=== PATIENT | male | born 1995 | race Caucasian/White ===

== ENCOUNTER 2017-07-22 15:56 | Emergency (ER) | payer SELFPAY ==
[~2017-07-22] VITALS: Ht 182.9 cm; Wt 77.1 kg
[~2017-07-22 15:56] MED LIST: AMOX500 PO; CEPH500 PO; CODACEE120 PO; CYCL10 PO; Cleocin HCl300 MG PO; HYDACE5 PO; Hydrocodone-Ap1 EA23 PO; IBUP600 PO; IBUP800 PO; Motrin600 MG PO; NAPR220; Naprosyn500 MG PO; Norco 5-325 Ta1 EACH PO; PENVK500 PO; PROM25 PO; Pepcid40 MG PO; RXHYD5325 PO; SULTRIDS; SULTRIDS PO; TRAM50 PO; Ultram50 MG PO; Veetids 500500 MG PO; Zofran Odt4 MG SL
[2017-07-22] MEDS ORDERED: Robaxin-750750 MG PO (17:50)
== END 2017-07-22 17:58 | disposition home or self-care (01) ==
LOC: ER 15:56
DX: S16.1XXA Strain of muscle, fascia and tendon at neck level, initial encounter (principal); S39.012A Strain of muscle, fascia and tendon of lower back, initial encounter; Z90.89 Acquired absence of other organs; V69.9XXA Occupant (driver) (passenger) of heavy transport vehicle injured in unspecified traffic accident, initial encounter
CPT/HCPCS: 72040; 72070; 72100; 99283

== ENCOUNTER 2018-02-23 10:19 | Emergency (ER) | payer OTHER ==
[~2018-02-23] VITALS: Ht 182.9 cm; Wt 77.1 kg
[~2018-02-23 10:19] MED LIST changes: +Robaxin-750750 MG PO
[2018-02-23] MEDS ORDERED: ARIPIPRAZOLE2 MG PO ×2 (10:42→11:07)
[2018-02-23] MEDS ORDERED: OXCA300 PO ×2 (10:42→11:07)
== END 2018-02-23 11:31 | disposition home or self-care (01) ==
LOC: ER 10:19
DX: F43.10 Post-traumatic stress disorder, unspecified (principal); F31.81 Bipolar II disorder; Z79.899 Other long term (current) drug therapy
CPT/HCPCS: 99281

== ENCOUNTER 2018-04-05 19:57 | Emergency (ER) | payer OTHER ==
[~2018-04-05] VITALS: Ht 182.9 cm; Wt 81.7 kg
[~2018-04-05 19:57] MED LIST changes: +ARIPIPRAZOLE2 MG PO; +OXCA300 PO
[2018-04-05] MEDS ORDERED: PENVK500 PO (20:05)
[2018-04-05] MEDS ORDERED: KETO10 PO (20:12)
== END 2018-04-05 20:18 | disposition home or self-care (01) ==
LOC: ER 19:57
DX: K02.9 Dental caries, unspecified (principal)
CPT/HCPCS: 99282

== ENCOUNTER 2018-08-24 18:16 | Emergency (ER) | payer OTHER ==
[~2018-08-24] VITALS: Ht 182.9 cm; Wt 72.6 kg
[~2018-08-24 18:16] MED LIST changes: +KETO10 PO
== END 2018-08-24 19:13 | disposition home or self-care (01) ==
LOC: ER 18:16
DX: S66.911A Strain of unspecified muscle, fascia and tendon at wrist and hand level, right hand, initial encounter (principal); X58.XXXA Exposure to other specified factors, initial encounter; F32.9 Major depressive disorder, single episode, unspecified
CPT/HCPCS: 73140; 99283-25

== ENCOUNTER 2018-11-07 14:34 | Emergency (ER) | payer OTHER ==
[~2018-11-07] VITALS: Ht 182.9 cm; Wt 77.1 kg
[2018-11-07] MEDS ORDERED: Amphetamine Sal30 MG PO (15:11)
[2018-11-07] MEDS ORDERED: FLUO10 PO (15:11)
[2018-11-07] MEDS ORDERED: Abilify2 MG PO (15:15)
[2018-11-07] MEDS ORDERED: CEPH500 PO (16:20)
== END 2018-11-07 16:48 | disposition home or self-care (01) ==
LOC: ER 14:34
DX: L03.113 Cellulitis of right upper limb (principal); Z79.899 Other long term (current) drug therapy
CPT/HCPCS: 73130; 76882; 99284-25

== ENCOUNTER 2018-12-28 16:56 | Emergency (ER) | payer OTHER ==
[~2018-12-28] VITALS: Ht 182.9 cm; Wt 77.1 kg
[~2018-12-28 16:56] MED LIST changes: +Abilify2 MG PO; +Amphetamine Sal30 MG PO; +FLUO10 PO
[2018-12-28] MEDS ORDERED: IBUP800 PO (18:13)
== END 2018-12-28 18:24 | disposition home or self-care (01) ==
LOC: ER 16:56
DX: S50.11XA Contusion of right forearm, initial encounter (principal); Y04.8XXA Assault by other bodily force, initial encounter; Z79.899 Other long term (current) drug therapy
CPT/HCPCS: 73090; 99283-25

== ENCOUNTER 2019-06-29 01:00 | Observation (INO) | payer OTHER ==
[~2019-06-29] VITALS: Ht 182.9 cm; Wt 77.1 kg
[2019-06-29 01:40] LABS: BASOPHILS ABSOLUTE AUTO 0.06 K/mm3 (0.00-0.23); BASOPHILS PERCENT AUTO 1 % (0-2); EOSINOPHILS ABSOLUTE AUTO 0.27 K/mm3 (0.00-0.68); EOSINOPHILS PERCENT AUTO 4 % (0-6); Hematocrit 44.9 % (37.0-53.0); Hemoglobin 15.7 g/dL (13.5-17.5); IMMATURE GRAN ABSOLUTE AUTO 0.02 K/mm3 (0.00-0.10); IMMATURE GRAN PERCENT AUTO 0 % (0-1); LYMPHOCYTES PERCENT AUTO 40 % (21-46); MONOCYTES ABSOLUTE AUTO 0.46 K/mm3 (0.16-1.47); MONOCYTES PERCENT AUTO 6 % (4-13); Mean Corpuscular HGB 31.6 pg (26.0-34.0); Mean Corpuscular Volume 90 fL (80-100); Mean Platelet Volume 10.3 fL (9.1-12.4); NEUTROPHILS ABSOLUTE AUTO 3.82 K/mm3 (1.96-9.15); NEUTROPHILS PERCENT AUTO 49 % (41-73); Platelet Count 198 K/mm3 (150-400); RDW Coefficient Variation 11.6 % (11.7-14.2); RDW Standard Deviation 38.4 fL (35.1-46.3); Red Blood Cell Count 4.97 M/mm3 (4.30-5.90); White Blood Cell Count 7.73 K/mm3 (4.00-11.30)
[2019-06-29 01:54] LABS: Alanine Aminotransfer (ALT/SGP 25 U/L (12-78); Albumin, Blood 4.6 g/dL (3.4-5.0); Albumin/Globulin Ratio 1.4 (0.8-1.8); Alk Phos 70 U/L (50-136); Anion Gap 8 mmol/L (6-16); Aspartate Aminotrans (AST/SGOT 20 U/L (12-37); Bilirubin, Total 1.2 mg/dL (0.1-1.0); Blood Urea Nitrogen 19 mg/dL (8-24); Bun/Creatinine Ratio 21.2 (12.0-20.0); CO2, Blood 28 mmol/L (21-32); Calcium, Blood 9.1 mg/dL (8.5-10.1); Chloride, Blood 104 mmol/L (98-108); Ethanol (Alcohol), Blood, Med <3 mg/dL; Globulin, Blood 3.2 g/dL (2.2-4.0); Glomerular Filtration Rate >60 (60-); Glucose, Blood 90 mg/dL (70-99); Potassium, Blood 3.9 mmol/L (3.5-5.5); Salicylate <1.7 mg/dL (2.8-20.0); Sodium, Blood 140 mmol/L (136-145); Total Protein, Blood 7.8 g/dL (6.4-8.2)
[2019-06-29 02:03] LABS: Acetaminophen, Random <2.0 ug/mL (10.0-30.0)
[2019-06-30 06:45] LABS: Source, Urine Clean Catch
[2019-06-30 06:49] LABS: Appearance, Urine Clear (Clear); Bilirubin, Urine Neg (Neg); Blood, Urine Neg (Neg); Color, Urine Yellow (P-Yellow); Glucose Qualitative, Urine Neg (Neg); Ketones, Urine 1+ (Neg); Leukocyte Esterase, Urine 1+ (Neg); Nitrite, Urine Neg (Neg); Protein, Urine 1+ (Neg); Urobilinogen, Urine 1+ (Normal)
[2019-06-30 06:57] LABS: Bacteria Few /hpf; Red Blood Cells, Urine 0-2 /hpf (0-2); Squamous Epithelial Cells Rare /hpf (Few); White Blood Cells, Urine 0-2 /hpf (0-5)
[2019-06-30 06:58] LABS: Mucus Mod (0-Heavy)
[2019-06-30 07:00] LABS: U Amphetamine Screen DETECTED; U Barbituate Screen Not Detected; U Benzodiazapine Screen DETECTED; U Buprenorphine Screen Not Detected; U Cannabinoids Screen DETECTED; U Cocaine Screen Not Detected; U Methadone Screen Not Detected; U Methamphetamine Screen Not Detected; U Opiates Screen Not Detected; U Oxycodone Screen Not Detected; U Phencyclidine Screen Not Detected; U Propoxyphene Screen Not Detected
== END 2019-06-30 12:42 | disposition home or self-care (01) ==
LOC: ER 01:00 → EOR 01:01
PROVIDERS: ADMIT Emergency Medicine
DX: F31.9 Bipolar disorder, unspecified (principal); F90.9 Attention-deficit hyperactivity disorder, unspecified type; S60.221A Contusion of right hand, initial encounter; S09.8XXA Other specified injuries of head, initial encounter; Z79.899 Other long term (current) drug therapy; X83.8XXA Intentional self-harm by other specified means, initial encounter
CPT/HCPCS: 70450; 70498; 73120; 80053; 81001; 85025; 87086; 96372-59; 99285-25; G0378; G0480; J1200; J1630; J2060; Q9967

== ENCOUNTER 2020-05-22 20:36 | Emergency (ER) | payer OTHER ==
[~2020-05-22] VITALS: Ht 175.3 cm; Wt 78.6 kg
== END 2020-05-22 20:58 | disposition home or self-care (01) ==
LOC: ER 20:36
DX: Z53.21 Procedure and treatment not carried out due to patient leaving prior to being seen by health care provider (principal)

== ENCOUNTER 2021-07-09 02:14 | Emergency (ER) | payer OTHER ==
[~2021-07-09] VITALS: Ht 177.8 cm; Wt 68.0 kg
[2021-07-09] MEDS ORDERED: CEPH500 PO (03:53)
== END 2021-07-09 04:28 | disposition home or self-care (01) ==
LOC: ER 02:14
DX: K04.7 Periapical abscess without sinus (principal); L03.115 Cellulitis of right lower limb; L03.116 Cellulitis of left lower limb; B34.9 Viral infection, unspecified
CPT/HCPCS: 99283; A9270